=== PATIENT | female | born 1960 | race Caucasian/White ===

== ENCOUNTER 2022-02-08 19:56 | Emergency (ER) | payer OTHER ==
[~2022-02-08] VITALS: Ht 172.7 cm; Wt 86.2 kg
[2022-02-08] MEDS ORDERED: LISINOPRIL10 MG PO (20:22)
[2022-02-08] MEDS ORDERED: ATORVASTATIN CA20 MG PO (20:22)
--- NOTE | 2022-02-10 15:51 | EKG ---
[facility] [address] [facility] [place] [address] Signed Sinus tachycardia Possible Anterior infarct , age undetermined Abnormal ECG No previous ECGs available Confirmed by GRADY WELLS MD ([id number] on 02/10/2022 3:51:34 PM Electronically Signed By: GRADY WELLS MD 02/10/22 155 PATIENT NAME: SARAHI MARKHAM Electrocardiogram DATE OF : 58 PHYSICIAN: GRADY WELLS MD REPORT #: [id number] REPORT IS CONFIDENTIAL AND NOT TO BE RELEASED WITHOUT AUTHORIZATION
== END 2022-02-08 21:40 | disposition home or self-care (01) ==
LOC: ED 19:56
DX: R00.2 Palpitations (principal); I10 Essential (primary) hypertension; E78.5 Hyperlipidemia, unspecified; Z79.899 Other long term (current) drug therapy
CPT/HCPCS: 36415; 80053; 83735; 84443; 84484; 85025; 93005; 93010; 99285-25